=== PATIENT | male | born 1980 | race Caucasian/White ===

== ENCOUNTER 2024-07-02 16:36 | Emergency (ER) | payer OTHER, SELFPAY ==
[2024-07-02 16:40] VITALS: BP 142/86
[2024-07-02 17:14] VITALS: BP 102/67
[2024-07-02 17:15] VITALS: BMI 41.9
[2024-07-02 17:23] LABS: % Basophils 0.5 % (0-2); % Eosinophils 0.8 % (0-6); % Immature Granulocytes 0.2 % (0-0.5); % Lymphocytes 25.2 % (20.5-51.1); % Monocytes 8.2 % (1.7-9.3); % Neutrophils 65.1 % (42.2-75.2); Absolute Eosinophils 0.1 10^3/uL (0-0.7); Absolute Lymphocytes 2.1 10^3/uL (1.2-3.4); Absolute Monocytes 0.7 10^3/uL (0.1-0.6); Absolute Neutrophils 5.4 10^3/uL (1.4-6.5); Hematocrit 42.7 % (39.0-52.0); Hemoglobin 15.2 g/dL (13.0-18.0); Mean Corp Hgb Conc. 35.6 g/dL (33.0-37.0); Mean Corpuscular Hgb 29.8 pg (27.0-31.0); Mean Corpuscular Volume 83.7 fL (80.0-94.0); Mean Platelet Volume 9.9 fL (7.4-10.4); Nucleated Red Blood Cells % 0 % (-); Platelet Count 262 10^3/uL (130-400); Red Cell Dist. Width 13.2 % (11.5-14.5); White Blood Cell Count 8.3 10^3/uL (4.8-10.8)
[2024-07-02 17:31] VITALS: BP 114/66
[2024-07-02 17:35] LABS: ALT (SGPT) 21 U/L (0-50); AST (SGOT) 28 U/L (17-59); Albumin 3.9 g/dl (3.5-5.0); Alkaline Phosphatase 69 U/L (38-126); Blood Urea Nitrogen 19 mg/dl (9-20); Calcium 9.1 mg/dl (8.4-10.2); Carbon Dioxide 29 mmol/L (22-30); Chloride 104 mmol/L (98-107); Estimated Creatinine Clearance > 125 ml/min; Glucose 97 mg/dl (70-99); Lipase 115 U/L (23-300); Potassium 4.5 mmol/L (3.5-5.1); Sodium 140 mmol/L (135-145); Total Bilirubin 1.4 mg/dl (0.2-1.3); Total Protein 6.5 g/dl (6.3-8.2); eGFR > 60.00
--- NOTE | 2024-07-02 17:43 | ED.GENMED ---
History of Present Illness
General
Chief Complaint: Chest Pain
Source: patient
Exam Limitations: none
Time Seen by Provider: 07/02/24 16:51
Nursing documentation reviewed up to this point in time: agreed with
History of Present Illness
History of Present Illness:
The patient is a pleasant 44-year-old man with a past medical history of elevated cholesterol who reports that about 1 hour prior to arrival he developed upper abdominal pain in the area of his chronic abdominal hernia and then he felt pressure
radiating into his chest. Patient reports that his hernia does not feel hard or painful to the touch. He denies shortness of breath, nausea and vomiting. Patient reports he still feels mild pressure in his chest. He denies leg pain and leg
swelling.
Past History
Past History
ED Past Medical History: Hypercholesterolemia and Other (Abdominal hernia)
ED Past Surgical History: Cholecystectomy and Other (Gastric sleeve surgery)
Social History
Tobacco: Former smoker
Alcohol: None
Drug: None
Personal:
Living: with family
Employment: Employed
Family History
Family History: Other
Review of Systems
Review of Systems
Allergies reviewed?: Yes
All Other Systems: ROS reviewed and negative except as documented in HPI and ROS
Constitutional: Reports no symptoms
EENT: Reports no symptoms
Cardiac: Reports chest pain
ABD/GI: Reports abdominal pain
: Reports no symptoms
Musculoskeletal: Reports no symptoms
Neurological: Reports no symptoms
Endocrine: Reports no symptoms
Hematologic/Lymphatic: Reports no symptoms
Psychiatric: Reports no symptoms
Phy Exam
Physical Exam
Physical Exam:
Physical Exam
General: no apparent distress, not acutely ill. Well and comfortable appearing
Neck: supple. no meningeal signs. normal psoterior pharynx
Heart: s1/s2 regular rate and rhythm, no murmur. equal radial pulses.
Lungs: no acute respiratory distress. clear bilaterally
Abdomen: normal bowel sounds. Soft and nontender throughout. Reproducible right upper abdominal wall hernia which is nontender and soft to the touch
Neuro: alert and oriented. no focal neurological deficits
Skin: no rash
Psychiatric: well kept. interactive and cooperative
Extremities: no edema. no calf tenderness. negative homans. good distal pulses
Scores
Heart Score for Chest Pain Patients
STEMI patient?: Not applicable
Course
Orders/Labs/Results
Orders:
Orders
07/02/24 16:44
Electrocardiogram (*1) Urgent
Reason for Study: Abdominal Pain
EKG- Treatment ONCE
07/02/24 17:03
CR Obstruct Series W/pa Chest Urgent
Comment:
Reason For Exam: epig pain, upper abdominal hernia
07/02/24 17:11
Complete Blood Count/With Diff Urgent
Comprehensive Metabolic Panel Urgent
Lipase Urgent
Troponin I Urgent
07/02/24 18:59
EKG [Electrocardiogram (*1)] Urgent
Reason for Study: Chest Pain
EKG- Treatment ONCE
07/02/24 19:02
Troponin I Urgent
Abnormal Lab Results
07/02/24
17:11
Absolute Monos (auto) 0.7 H 10^3/uL
(0.1-0.6)
Total Bilirubin 1.4 H mg/dl
(0.2-1.3)
07/02/24 17:11
07/02/24 17:11
Vital Signs
Initial and Last Documented VS:
Initial Vital Signs
Temp Pulse Resp BP Pulse Ox
98.0 F 93 16 142/86 98
07/02/24 16:40 07/02/24 16:40 07/02/24 16:40 07/02/24 16:40 07/02/24 16:40
Last Documented Vital Signs
Temp Pulse Resp BP Pulse Ox
98.0 F 74 19 114/60 97
07/02/24 16:40 07/02/24 20:00 07/02/24 20:00 07/02/24 20:00 07/02/24 19:00
MDM/Problems Addressed
Differential Diagnosis Includes:
Small bowel obstruction, acute coronary syndrome, gastritis
MDM/Problems Addressed:
Patient presents with acute epigastric and chest pain
Chronic conditions affecting care:
Patient has increased risk of acute coronary syndrome given her elevated cholesterol
Acute Exacerbation and/or Progression of Chronic Illness:
Patient is acutely hypertensive, likely due to anxiety being in the ED
Acute Exacerbation and/or Progression of Chronic Illness: HTN
*Radiology
Radiology exam reviewed: preliminary read by ED provider (Obstruction series reviewed by me. No acute disease) and radiology read reviewed
*Pulse Oximetry
Patient hypoxic: no
*EKG
Interpreted by ED Provider?: Yes
Interpretation: normal
Comparison EKG: no comparison EKG present
Rate: normal
Rhythm: sinus
[place]: normal axis
Interval: normal interval
QRS Pattern: normal QRS
Ischemia: no ischemia
*Addiction Treatment Counselor Interpretation
Rate: normal
Interpretation: normal
Rhythm: sinus
*Critical Care Note
Total Time (30-74mins, 75-104mins- exclusive of procedures): Not Applicable
Data Reviewed
Source: patient
Patient Management
Social determinants of health affecting care: Living situation and Strong social support
Update Note
Update Note:
Patient has had no abdominal pain, nausea or vomiting in the ED to suggest bowel obstruction. His EKG appears nonischemic and both troponins are negative therefore it is unlikely that he has acute coronary syndrome. Patient looks extremely well
and comfortable. He has been nearly pain-free for hours in the ED. Pain may been related to gastritis
ED Attending Note
-
Portions of this chart may have been created with voice recognition software.� Occasional wrong word or��sound alike� substitutions may have occurred due to the inherent limitations of voice recognition software.
Discharge Plan
Departure
Patient Disposition: Home (Routine Discharge)
Date of Disposition: 07/02/24
Time of Disposition: 19:54
Patient with high blood pressure during this ER visit?: No
Condition: Good
Covid-19: Not Applicable
Discharge Problem:
Chest pain in adult
Instructions: Chest Pain PCP Follow Up
Prescriptions:
No Action
cyclobenzaprine 10 mg Tablet
10 mg PO HS PRN (Reason: back pain)
gabapentin 300 mg Capsule
300 mg PO TID PRN (Reason: back pain)
lorazepam 1 mg Tablet
1 mg PO HS
Referrals:
Mary Agustin CRNP [Family Provider] -
Interventions
Interventions:
*Risk Screen - Suicide Last Done: 07/02/24 17:15
*General Assessment Last Done: 07/02/24 17:15
*Neglect/Abuse Screening Last Done: 07/02/24 17:15
ED- Fall Risk Assessment Last Done: 07/02/24 16:55
*ED COVID-19 Vaccine History Last Done: 07/02/24 18:35
*Nursing Disposition Last Done: 07/02/24 20:10
ED- Cardiac Assessment Last Done: 07/02/24 19:49
Discharge Date and Time
Discharge Date/Time: 07/02/24 20:10
Print Language: SINHALA
[2024-07-02 17:46] LABS: Troponin I < 0.012 ng/ml
[2024-07-02 18:00] VITALS: BP 116/82
[2024-07-02 19:00] VITALS: BP 100/66
[2024-07-02 19:33] LABS: Troponin I < 0.012 ng/ml
[2024-07-02 20:00] VITALS: BP 114/60
== END 2024-07-02 20:10 | disposition home or self-care (01) ==
LOC: EMR 16:36
PROVIDERS: EMERGENCY PHYSICIAN Emergency Medicine; FAMILY PHYSICIAN Nurse Practitioner Family
DX: R10.10 Upper abdominal pain, unspecified (principal); R07.89 Other chest pain; K46.9 Unspecified abdominal hernia without obstruction or gangrene; E78.00 Pure hypercholesterolemia, unspecified; Z87.891 Personal history of nicotine dependence; Z90.49 Acquired absence of other specified parts of digestive tract; Z98.84 Bariatric surgery status
CPT/HCPCS: 99284; 74022; 80053; 83690; 84484; 85025; 93005